=== PATIENT | male | born 1995 | race Caucasian/White ===

== ENCOUNTER 2018-10-14 08:05 | Emergency (ER) | payer MEDICAID, SELFPAY ==
[2018-10-14 08:06] VITALS: BP 158/77; PULSE 70; RESP 16; TEMP 36.7; O2SAT 100; BMI 25.0
--- NOTE | 2018-10-14 08:18 | ED.VISSUMM ---
- ER Visit Summary Date of Service: 10/14/18 Chief Complaint: [] Fall left wrist pain History of Present Illness: The patient is a 22 M [] patient slipped on ice this morning suffered a fall left wrist injury no other complaints no other injuries he has no other past history is [id number]. Physical Examination: [] General, no distress resting comfortably HEENT is generally unremarkable The neck is supple no adenopathy Cardiovascular, regular rate and rhythm Lungs, clear bilateral Abdomen, soft nontender Extremities, is obvious pain and a deformity to the left wrist the hand has intact sensation to the fingers there is no trauma to the fingers of the hand the forearm elbow and shoulder are not tender the rest of the extremities are unremarkable Neurologic, awake alert answering questions appropriately moving all 4 extremities Test Results: [] Emergency Department Course and Treatment: [] The x-ray shows a distal radius fracture with dorsal angulation and some slight ulnar deviation, the x-ray report findings were reviewed with Dr. Mclaughlin on-call for orthopedics, he asked that the patient be placed in AP splints and see the patient tomorrow in the office,. The patient was placed in AP splints attempts were made at reduction during the splinting procedure. The AP splint is applied without difficulty. He had intact sensation cap refill to all 5 digits of the right left upper extremity no numbness weakness or paresthesias post application of splint. Explained to the mother and the patient the need to follow-up with Dr. Mclaughlin tomorrow ice elevation Percocet for pain and to return for change in symptoms Treatment Plan: [] Disposition: [] Home stable Impression: [] Still radius fracture left wrist with angulation AP splints applied This note was generated with [employer] dictation software. It may contain incorrect words, spelling, and punctuation that were not noted in review of the chart prior to signing ED Disposition - Plan for ED Patient: Chief Complaint: Upper Extremity Injury Referrals: Taylor Alves MD [STAFF PHYSICIAN] -
[2018-10-14] MEDS: Ondansetron 4 MG/2 ML Vial IV (08:28)
[2018-10-14] MEDS: morphine 8 MG/ML Syringe IV ×2 (08:28→09:01)
--- NOTE | 2018-10-14 08:35 | RAD_ITS ---
STUDY: X-RAY - LEFT WRIST REASON FOR EXAM: Pain, fall. TECHNIQUE: 3 view(s) of the wrist were obtained. COMPARISON: None. FINDINGS: There is a mildly comminuted fracture of the distal radial metaphysis with dorsal angulation of the distal fragment. There is no demonstrated distal ulnar fracture. Normal radiocarpal articulation. Normal distal radioulnar articulation. Normal carpal bones. Normal carpal articulations. Normal carpometacarpal articulation of the thumb. Normal second through fifth carpometacarpal articulations. Normal visualized metacarpal bones. The soft tissue structures are unremarkable. RAD/Wrist min 3 Views IMPRESSION: Distal radial fracture. Electronically Signed: Stanislav Kim MD at 9:27 EST Tel , Service support ,
--- NOTE | 2018-10-14 09:18 | ED.DEP ---
ED Disposition - Plan for ED Patient: Chief Complaint: Upper Extremity Injury Instructions: ED Fx Wrist General, ED Fx Colles Wrist Redu Requ Prescriptions: Oxycodone HCl/Acetaminophen [Percocet 5/325] 1 tab PO Q6H PRN PRN 3 Days #12 tab PRN Reason: Pain Referrals: Taylor Alves MD [STAFF PHYSICIAN] - Vince Mclaughlin DO [STAFF PHYSICIAN] - Additional Instructions: Please keep upper extremity elevated, do not get splint wet, return for change in symptoms, make sure you follow-up Dr. Mclaughlin tomorrow
[2018-10-14 09:33] VITALS: BP 108/69; PULSE 73; RESP 15; O2SAT 98
== END 2018-10-14 09:34 | disposition home or self-care (01) ==
PROVIDERS: Emergency Provider Emergency Medicine; Family Provider Family Medicine; PCP Family Medicine
DX: S52.502A Unspecified fracture of the lower end of left radius, initial encounter for closed fracture (principal); W00.0XXA Fall on same level due to ice and snow, initial encounter; Y93.9 Activity, unspecified; Y92.9 Unspecified place or not applicable
CPT/HCPCS: 29125; 73110; 96374; 96375; 99282; A4216; J2405

== ENCOUNTER 2018-10-22 10:20 | Day surgery (SDC) | payer MEDICAID, SELFPAY ==
[2018-10-19 08:18] VITALS: BMI 25.0
[2018-10-20] MEDS: Cefazolin 2 GM in 0.9% Normal Saline 100 ML IV (13:00)
[2018-10-22 10:59] VITALS: BP 149/69; PULSE 90; RESP 16; TEMP 37.5; O2SAT 100; BMI 24.2
--- NOTE | 2018-10-22 12:53 | PCM.DC.ORTHO ---
Discharge Diet: No Restrictions - move fingers as tolerated, keep incision clean and dry, follow up in 2 weeks, call with concerns/numbness/tingling/etc, leave splint in place Discharge Activity: May Not Drive May shower in (days): 1 Ice area for (Minutes): 20 - Every hour while awake. Weight Bearing Status: Weight bearing as tolerated Keep extremity elevated above heart level: Operative Extremity Call your doctor if your incision/area has: Continuous Slow Oozing, Sudden Increased Bleeding, Increased Pain/ Swelling, Increased Redness, Foul Smelling Discharge Call your doctor if you observe: Fever of 101 or Higher, Coldness, Increased Pain, Numbness or Tingling, Change in Color, Calf discomfort Allergies/Adverse Reactions: Allergies No Known Allergies Allergy (Verified 10/19/18 12:02) Medications to take at Discharge Oxycodone HCl/Acetaminophen [Percocet 5/325] 1 - 2 tablet PO Q6H PRN PRN 5 Days #30 tablet 10/22/18 The following prescriptions were given: Oxycodone HCl/Acetaminophen [Percocet 5/325] 1 - 2 tablet PO Q6H PRN PRN 5 Days #30 tablet PRN Reason: Pain Primary Care Physician: Hossein Carrero MD [Primary Care Provider] - Test Results: Test results from this visit will be discussed in further detail at your follow-up appointment, if applicable. Please Follow Up With: Milagros Christina, - [phone]
--- NOTE | 2018-10-22 12:58 | DCINST_ITS ---
Discharge Diet: No Restrictions - move fingers as tolerated, keep incision clean and dry, follow up in 2 weeks, call with concerns/numbness/tingling/etc, leave splint in place Discharge Activity: May Not Drive May shower in (days): 1 Ice area for (Minutes): 20 - Every hour while awake. Weight Bearing Status: Weight bearing as tolerated Keep extremity elevated above heart level: Operative Extremity Call your doctor if your incision/area has: Continuous Slow Oozing, Sudden Increased Bleeding, Increased Pain/ Swelling, Increased Redness, Foul Smelling Discharge Call your doctor if you observe: Fever of 101 or Higher, Coldness, Increased Pain, Numbness or Tingling, Change in Color, Calf discomfort Allergies/Adverse Reactions: Allergies No Known Allergies Allergy (Verified 10/19/18 12:02) Medications to take at Discharge Oxycodone HCl/Acetaminophen [Percocet 5/325] 1 - 2 tablet PO Q6H PRN PRN 5 Days #30 tablet 10/22/18 The following prescriptions were given: Oxycodone HCl/Acetaminophen [Percocet 5/325] 1 - 2 tablet PO Q6H PRN PRN 5 Days #30 tablet PRN Reason: Pain Primary Care Physician: Hossein Carrero MD [Primary Care Provider] - Test Results: Test results from this visit will be discussed in further detail at your follow- up appointment, if applicable. Please Follow Up With: Milagros Christina, - [phone]
[2018-10-22] MEDS: Cefazolin 2 GM in 0.9% Normal Saline 100 ML IV (13:00)
--- NOTE | 2018-10-22 13:00 | PCM.OPRPT ---
Report of Operation Date of Procedure: 10/22/18 Pre-Operative Diagnosis: left extraarticular distal radius fracture Post-Operative Diagnosis: same Surgery/Procedure Performed:: orif left distal radius financial sales associate: Yanelis Cuellar Type of Anesthesia:: General Anesthesiologist: Darien Ferraro Specimen's removed: tt- 45 mins Estimated Blood Loss (mL): minimal Fluids Replaced: 1500cc lr Description of Procedure: Preop note Patient is a 23-year-old male who had a fall on outstretched hand complained of pain deformity was seen in the ER splint and was seen in my office. Patient noted to have an extra-articular but angulated distal radius fracture. Risks benefits and alternatives surgery were discussed with patient. Discussed wearing a cast for 6 weeks having close reduction versus having open reduction and internal fixation with plate and screws. 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 Patient has no numbness tingling or other carpal tunnel symptoms. Wrist benefits alternatives surgery discussed with patient. Risks include but not limited to blood loss, blood clot, infection, neurovascular injury, failure procedure, loss of life and loss of limb. Patient is aware would like to proceed with left open reduction internal fixation of his distal radius. Operative note Patient seen and examined preoperative holding area. Left wrist was marked. Patient was brought to the operating room placed supine on the operating table. Signing, anesthesia, antibiotics were administered. Left arm was prepped and draped in usual sterile fashion with tourniquet around his upper arm. We marked her incision using fluoroscopy. Timeout was performed. The left arm was then elevated exsanguinated and tourniquet was raised to pressure to 50 torr. We then used a 15 blade to cut through our incision which was made directly over the FCR. We then dissected down with tenotomies to the level of the FCR fascia the FCR was then excised and brought ulnarly. We then dissected down further and were able to release the pronator quadratus at its radial styloid origin down proximally and inspected ulnarly with an elevator. We then able to visualize the fracture site. We then pulled some traction on the fracture site please note that we also pulled traction on the fracture site preoperatively and had a little bit better reduction than what he was initially had there was still dorsally angulated. We then able to visualize the fracture site we did use a freer we then used a bone pick to clean out any debris irrigated the fracture site with irrigation we then picked out our DCP plate that was placed over to ensure that we had the appropriate width. We then placed 2 cortical screws distally one in the radial styloid and one ulnarly. After we had fixated both the plate down to bone we ensure that the proximal aspect of the plate was elevated just enough to maintain to restore our volar tilt. We placed the remaining screws and using locking screws in the distal aspect in sequential fashion in standard technique utilizing fluoroscopy to ensure that it was not in the joint which it was not. We then were able to bring the wrist down the plate down the bone in place 3 2.7 cortical screws 116-2/14s in the shaft and had good reduction of the volar tilt. We then irrigated the incision with copious copious muscle sterile saline. We reapproximated the pronator quadratus on top of the plate. We took final images we the skin was closed with subcuticular 2-0 Vicryl in a running 4-0 Monocryl sterile dressings were applied. Patient tolerated procedure well there are no complication transferred to recovery room in stable condition. Next Postoperative note Splint at all times Follow-up in 2 weeks Pharmacy has prescription Call with increased pain numbness tingling or further issues arise Dragon disclaimer This note was generated with [employer] dictation software. It may contain incorrect words, spelling, and punctuation that were not noted in checking the note before signing.
--- NOTE | 2018-10-22 13:06 | RAD_ITS ---
STUDY: X-RAY - LEFT WRIST REASON FOR EXAM: Male, 23 years old. Open reduction and internal fixation of the distal radial fracture. TECHNIQUE: 3 view(s) and 4 coned down images of the wrist were obtained. COMPARISON: Comparison is made with prior examination dated October 14, 2018. FINDINGS: The patient is status post open reduction and internal fixation of the distal radial fracture utilizing screw and sideplate fixation device. There is good alignment. Normal carpometacarpal articulation of the thumb. Normal second through fifth carpometacarpal articulations. Normal visualized metacarpal bones. The soft tissue structures are unremarkable. RAD/Wrist min 3 Views IMPRESSION: Status post open reduction internal fixation of the distal radial fracture. There is good alignment. Electronically Signed: Vivek Barr MD at 14:11 EST Tel [phone], Service support ,
[2018-10-22] MEDS: Mupirocin Ointment 22gm Tube 1 APPLIC (13:25)
[2018-10-22 14:16] VITALS: BP 149/69; BP 159/106; PULSE 97; RESP 16; TEMP 36.7; O2SAT 98
[2018-10-22 14:30] VITALS: BP 149/69; BP 152/102; PULSE 94; RESP 16; O2SAT 99
[2018-10-22 14:45] VITALS: BP 149/69; BP 166/90; PULSE 95; RESP 16; O2SAT 97
[2018-10-22 15:01] VITALS: BP 149/69; BP 164/99; PULSE 97; RESP 16; TEMP 36.9; O2SAT 96
[2018-10-22] MEDS: HYDROcodone Bitartrate/Apap 5/325 Tablet PO (15:11)
[2018-10-22 15:32] VITALS: BP 138/78; BP 149/69; PULSE 70; RESP 18; TEMP 36.8; O2SAT 99
== END 2018-10-22 15:35 | disposition home or self-care (01) ==
LOC: SDC 10:21 → AC 10:24
PROVIDERS: Family Provider Family Medicine; PCP Family Medicine; Referring Provider Orthopaedic Surgery; Visit Provider Orthopaedic Surgery
PROC: (CPT 25607; principal; 2018-10-22 11:45)
DX: S52.552A Other extraarticular fracture of lower end of left radius, initial encounter for closed fracture (principal); W01.0XXA Fall on same level from slipping, tripping and stumbling without subsequent striking against object, initial encounter; Y93.89 Activity, other specified; Y92.9 Unspecified place or not applicable; F17.200 Nicotine dependence, unspecified, uncomplicated
CPT/HCPCS: 01830; 25607; 73110; 76000; C1713; J7120; J2405

== ENCOUNTER → 2018-11-04 10:06 | Outpatient (CLI) | payer MEDICAID, SELFPAY ==
[2018-10-22 10:59] VITALS: BMI 24.2
--- NOTE | 2018-11-04 10:10 | RAD_ITS ---
STUDY: X-RAY - LEFT WRIST REASON FOR EXAM: Male, 23 years old. Postsurgical follow-up. TECHNIQUE: 3 view(s) of the wrist were obtained. COMPARISON: Left wrist, October 22, 2018. FINDINGS: There is a metallic plate and screws along the ventral aspect of the distal radius which is intact and unchanged in position from the previous examination. The fracture fragments are in normal alignment. There is mild callus formation along the dorsal aspect of the fracture. The radiocarpal articulation is maintained. Normal carpal and carpal articulations. Normal carpometacarpal articulation of the thumb. Normal second through fifth carpometacarpal articulations. Normal visualized metacarpal bones. The soft tissue structures are unremarkable. RAD/Wrist min 3 Views IMPRESSION: Internal fixation of a distal radial fracture. There is no change in alignment of fracture fragments. Mild healing is seen dorsally. Electronically Signed: Fernando Dominguez DO at 20:31 EST Tel [phone], Service support ,
== END ==
PROVIDERS: Family Provider Family Medicine; PCP Family Medicine; Referring Provider Physician Assistant; Visit Provider Physician Assistant
DX: M25.532 Pain in left wrist (principal); Z98.890 Other specified postprocedural states
CPT/HCPCS: 73110; 97166

== ENCOUNTER 2018-11-29 16:00 | Outpatient (RCR) | payer MEDICAID, SELFPAY ==
[2018-11-04 10:36] VITALS: BMI 24.2
--- NOTE | 2018-11-04 12:09 | HP.OTEVAL_ITS ---
Patient's Visit Information IRIS TAPIA is a 23 year old M, referred to Occupational Therapy by TRACY Falk, with a diagnosis of ORIF L hand; In articular fracture of distal radius. Date of Evaluation: 11/04/18 Occupational Therapist: Ira Ace - Subjective Subjective: Arrived as referral from [facility] orth[facility]. Injury occurred about 3.5- 4 weeks ago and was followed by surgery for ORIF. He is currently three weeks out of surgery. 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 - Pain Left Wrist 5 Pain Intensity Range: 3, 4, 7, 8 - Objective Objective/Observation: Steri strips on; increased red and dry blood. ROM and strength limited. No pain with palpation. Tenderness with some movements. - ROM Shoulder: WFL Elbow: WFL Forearm: supination R 0-89, L 0-64 Wrist: flexion R 0-76, L 0-21; extension R 0-50, L 0-20 MP: WFL PIP: WFL- Boutineer deformity not DIP hyper extenion but PIP extensor lag 50 deg DIP: WFL - Strength Pharmacy Laboratory Technician: R 96, L 40 lbs Lateral Pinch: R 28, L 18 lbs Tripod Pinch: R 27, L 17 lbs Tip-to-Tip Pinch: R 16, L 10 lbs - Edema Proximal Phalanx: R 7.0, L 6.8 Other: none noted - Sensation Sensation Comments: Denies numbness or tinging. - Nine Hole Peg Right: 22.35 s Left: 27.80 s - In-Hand Manipulation Finger to Palm Translation: Normal - Right, Mild - Left Palm to Finger Translation: Normal - Right, Mild - Left, Moderate - Left Shift: Normal - Right, Mild - Left, Moderate - Left Rotation: Normal - Right, Mild - Left, Moderate - Left Comments: 4/10 pain with tasks. - Quick DASH-Disab of Arm,Shoulder& Hand Quick DASH Score: 45.0000 - Hand/Wrist Evaluation Total Score of Pain & Functional Sections: 54 - Goals Goal:: Iris to increased L clip loading machine adjuster strength by 20-30 lbs to promote increased ROM and strength needed to complete ADL/IADLs by d/c. Goal:: Iris to increased L wrist ROM by 15-20 degrees to promote increased ROM needed to complete self care tasks by d/c. Goal:: Iris to complete have no more than 1/10 pain with repetitive movements 100% of the time by d/c. Goal:: Iris to improve L hand dexterity and ROM by decreased time on 9 hole pegboard test to promote time results similar to R non affected hand. Goal:: Iris to be (i) to complete proper joint mechanics and alignment of wrist during IADLs of job specific tasks to promote integrity of surgery and decrease risk of further injury by d/c. Goal:: Iris to be (I) to return to all ADL/IADLs 4/5 trials 80% of the time by d/c. - Rehabilitation General Assessment: Iris arrived to OT evaluation on this date of 11/04/18. Iris is three weeks post op from ORIF placement and about 3.5-4 weeks out of original injury. Steri strips still on and covering incisions. ROM and strength limited at this time and skilled OT needed to promote returning to PLOF for all ADL/IADL including work related tasks. Rehabilitation Potential: Excellent - Anticipated Interventions Anticipated Interventions: Early Active Motion, A/AAROM/PROM, Strengthening, Edema Control, Scar Care, Massage, Desensitization, Wound Care, Modalities, Orthoses, Joint Protection/Energy Conservation, Ergonomic Education, Fine Motor Coord/Stan, ADL Training, Caregiver Training, Home Program - Visit Plan Frequency: 2x /Week Duration: 4 Weeks General Plan: OT to work on ROM, strength, decrease pain, modalities as needed to manage pain and edema if occuring. TEXT: Thank you for the opportunity to evaluate your patient. For Medicare and Medicare HMO plans, please review the plan of care and approve it. It will need to be FAXED BACK to us at [phone] for Medicare purposes. Please let me know if there are questions or concerns regarding this plan of care. Physician Signature: Date:
--- NOTE | 2019-05-23 17:44 | HP.OT.NRP ---
HP - Discharge Summary - Patient Information IRIS TAPIA was seen in my office for initial evaluation on 11/04/18. The following Plan of Care was established for this patient: Initial Frequency: 2x /Week Initial Duration: 4 Weeks Plan: cont POC - Anticipated Interventions Anticipated Interventions: Early Active Motion, A/AAROM/PROM, Strengthening, Edema Control, Scar Care, Massage, Desensitization, Wound Care, Modalities, Orthoses, Joint Protection/Energy Conservation, Ergonomic Education, Fine Motor Coord/Stan, ADL Training, Caregiver Training, Home Program This patient was last seen in our office 12/08/18. Pertinent comments regarding their Occupational therapy will appear below: Cancelled last appointment and did not return for further follow up. He will be d/c'd at this time. At this point I will be discontinuing this patient from occupational therapy. I would be happy to see this patient again in the future if found appropriate by the physician. Thank you! Ira Ace, OTR/L
== END 2018-11-29 19:00 | disposition home or self-care (01) ==
LOC: OT 16:00
PROVIDERS: Family Provider Family Medicine; PCP Family Medicine; Referring Provider Physician Assistant; Visit Provider Physician Assistant
DX: Z98.890 Other specified postprocedural states (principal)
CPT/HCPCS: 97110; 97140; 97166; 97530